=== PATIENT | male | born 1985 | race Caucasian/White ===

== ENCOUNTER → 2016-10-17 | Outpatient (CLI) | payer BC ==
[2016-10-17 11:14] LABS: CHOLESTEROL/HDL RATIO 4.6
[2016-10-17 14:44] LABS: ALKALINE PHOSPHATASE 77 U/L (45-117); ALT/SGPT 102 U/L (12-78); AST/SGOT 38 U/L (15-37)
== END | disposition home or self-care (01) ==
LOC: C.LABBC 07:56
PROVIDERS: ATTEND Family Medicine
DX: Z00.00 Encounter for general adult medical examination without abnormal findings (principal); E78.5 Hyperlipidemia, unspecified